=== PATIENT | male | born 1985 ===

== ENCOUNTER 2016-10-02 17:06 | Emergency (ER) | payer BC, OTHER ==
[2016-10-02 17:06] VITALS: BMI 31.4
[2016-10-02 17:26] VITALS: BP 165/69; PULSE 78; RESP 16; TEMP 98.9; O2SAT 97
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
--- NOTE | 2016-10-03 12:19 | RAD ---
PROCEDURE: Right Hand Radiographs. HISTORY: pain COMPARISON: None. FINDINGS: BONES: Normal. No fracture. JOINTS: Normal. No osteoarthritic changes. SOFT TISSUES: Normal. OTHER FINDINGS: None. IMPRESSION: Normal right hand radiographs.
== END 2016-10-02 18:36 | disposition home or self-care (01) ==
LOC: ED 17:06
DX: M79.641 Pain in right hand (principal)